=== PATIENT | female | born 1985 | race Caucasian/White ===

== ENCOUNTER 2019-08-30 00:12 | Emergency (ER) | payer SELFPAY ==
[2019-08-30 01:35] VITALS: BMI 20.5
--- NOTE | 2019-08-30 02:32 | PDOC ---
History of Present Illness - General Chief Complaint: Cold Symptoms Stated Complaint: FEVER,BODY PAIN Time Seen by Provider: 08/30/19 02:21 - History of Present Illness Initial Comments: 08/30/19 02:31 HPI: 34 y/o F with no pmh presenting with 3 days of flu like symptoms with subjective fever, whole body aches, sore throat, cough, pleuritic chest pain, congestion, rhinorrhea. Denies flu vaccine, sick contacts, abd pain, dysuria, change in BM, syncope, LUTHER, LH, SOB. PMHx: as noted above ROS: as noted SHx: Denies tobacco use; no alcohol use; MJ use monthly Allergies: NKDA ROS: GENERAL/CONSTITUTIONAL: +fever. No weakness. HEAD, EYES, EARS, NOSE AND THROAT: No change in vision. No ear pain or discharge. +sore throat. CARDIOVASCULAR: No chest pain or shortness of breath RESPIRATORY: +cough; no wheezing, or hemoptysis. GASTROINTESTINAL: +nausea; no vomiting, diarrhea or constipation. GENITOURINARY: No dysuria, frequency, or change in urination. MUSCULOSKELETAL: +muscle aches SKIN: No rash NEUROLOGIC: No headache, vertigo, loss of consciousness, or change in strength/ sensation. ENDOCRINE: No increased thirst. No abnormal weight change HEMATOLOGIC/LYMPHATIC: No anemia, easy bleeding, or history of blood clots. ALLERGIC/IMMUNOLOGIC: No hives or skin allergy. PE: GENERAL: Awake, alert, and fully oriented, no acute distress HEAD: No signs of trauma, normocephalic, atraumatic EYES: EOMI, sclera anicteric, conjunctiva clear ENT: Auricles normal inspection, hearing grossly normal, nares patent, oropharynx with mild posterior erythema. Moist mucosa NECK: Normal ROM, no lymphadenopathy LUNGS: No increased work of breathing, symmetrical chest rise, clear to auscultation bilaterally, no wheezes, crackles or rhonchi HEART: Regular rate and rhythm, normal S1 and S2, no murmur, peripheral pulses 2 + and equal bilaterally. ABDOMEN: Soft, nondistended, nontender, normoactive bowel sounds. No guarding, no rebound. No masses. No CVAT MUSCULOSKELETAL: Normal inspection, FROM NEUROLOGICAL: Cranial nerves II through XII grossly intact. Normal speech, normal gait, no focal sensorimotor deficits SKIN: Warm, Dry, normal turgor, no rashes or lesions noted Past History - Past Medical History Allergies/Adverse Reactions: Allergies Allergy/AdvReac Type Severity Reaction Status Date / Time No Known Allergies Allergy Verified 08/30/19 01:33 Home Medications: Ambulatory Orders Ibuprofen [Motrin -] 600 mg PO TID PRN #30 tablet 11/04/13 Vitamins (Sjr) - 1 tab PO DAILY 11/04/13 Asthma: No Cancer: No Cardiac Disorders: No Diabetes: No HTN: No Seizures: No Thyroid Disease: No - Reproductive History (#): 5 Para: 4 Therapeutic (s) & number: No Spontaneous : 0 - Immunization History Immunization Up to Date: Yes - Psycho Social/Smoking Cessation Hx Smoking Status: No Smoking History: Never smoked Have you smoked in the past 12 months: No Number of Cigarettes Smoked Daily: 0 Hx Alcohol Use: No Drug/Substance Use Hx: No Hx Substance Use Treatment: No *Physical Exam - Vital Signs Last Vital Signs Temp Pulse Resp BP Pulse Ox 103.2 F H 94 H 18 105/44 L 97 08/30/19 01:24 08/30/19 01:24 08/30/19 01:24 08/30/19 01:24 08/30/19 01:24 Medical Decision Making - Medical Decision Making 08/30/19 04:32 34 y/o F with no pmh presenting with 3 days of flu like symptoms. T 103.2 HR95. PE with posterior oropharynx ertyhema -rapid flu, strep rapid -ivf, ofirmev, decadron -reassess 08/30/19 05:04 flu positive patient feels improved; throat pain has completely resolved T 99.1 discussed with patient results; agreeable with DC; understands instruction Discharge - Discharge Information Problems reviewed: Yes Clinical Impression/Diagnosis: Influenza Condition: Improved Disposition: HOME - Follow up/Referral - Patient Discharge Instructions Patient Printed Discharge Instructions: DI for Influenza -- Adult Additional Instructions: Additional Instructions: Please return to the emergency department with any new or worsening symptoms or concerns. Please follow up with your primary care physician within 72 hours for re- evaluation Please ensure adequate hydration and nutrition Please stay away from children, women, and the elderly for the next 3- 5 days while symptoms resolve to prevent risk of viral transmission Instrucciones adicionales: Regrese al departamento de emergencias con cualquier sntoma o inquietud nueva o que empeore. Kelechi un seguimiento con sifuentes mdico de atencin primaria dentro de las 72 horas para la reevaluacin Asegure everett hidratacin y nutricin adecuadas. Mantngase alejado de los nios, las mujeres embarazadas y los ancianos ben los prximos 3-5 chan mientras los sntomas se resuelven para evitar el riesgo de transmisin viral. Print Language: LIBYAN - Post Discharge Activity
[2019-08-30] MEDS ORDERED: SODIUM CHLORIDE 1,000 ML IV STA (03:06)
[2019-08-30] MEDS ORDERED: ACETAMINOPHEN 1000 MG/100 ML VIAL (NON FORMULARY) IVPB ONE (03:06)
[2019-08-30] MEDS ORDERED: ONDANSETRON 4 MG/2 ML VIAL IVPUSH ONE (03:07)
[2019-08-30] MEDS ORDERED: DEXAMETHASONE SOD PHOSPHATE 10 MG/1 ML VIAL IVPUSH ONE (03:07)
--- NOTE | 2019-08-30 03:07 | PDOC ---
Attending Attestation - Resident Resident Name: Eliot Valdez - ED Attending Attestation I have performed the following: I have examined & evaluated the patient, The case was reviewed & discussed with the resident, I agree w/resident's findings & plan, Exceptions are as noted - HPI HPI: 08/30/19 05:30 See resident HPI - Physicial Exam PE: 08/30/19 05:30 Agree with documented exam - Medical Decision Making 08/30/19 05:31 34F with PIPO for 3 days, sore throat likely viral syndrome f/u flu swab symptomatic tx re-eval +Flu A Symptomatically improved dc
[2019-08-30] MEDS ORDERED: DEXAMETHASONE SOD PHOSPHATE 10 MG/1 ML VIAL ONE (03:21)
[2019-08-30] MEDS ORDERED: ACETAMINOPHEN INJECTION 100 ML IVPB ONE (03:22)
[2019-08-30] MEDS ORDERED: ONDANSETRON 4 MG/2 ML VIAL ONE (03:22)
[2019-08-30 04:54] VITALS: BP 98/50; PULSE 78; TEMP 99.1
== END 2019-08-30 05:18 | disposition home or self-care (01) ==
LOC: JER 00:12
PROC: 3E033NZ Introduction of Analgesics, Hypnotics, Sedatives into Peripheral Vein, Percutaneous Approach (ICD-10-PCS; principal; 2019-08-30)
PROC: 3E033GC Introduction of Other Therapeutic Substance into Peripheral Vein, Percutaneous Approach (ICD-10-PCS; 2019-08-30)
DX: J11.1 Influenza due to unidentified influenza virus with other respiratory manifestations (principal)
CPT/HCPCS: 87070; 87077; 87804; 87880; 99282-25; J0131; J1100; J7030